=== PATIENT | male | born 1985 | race Caucasian/White ===

== ENCOUNTER 2024-11-28 08:36 | Emergency (ER) | payer OTHER ==
[~2024-11-28] VITALS: Ht 170.2 cm; Wt 102.8 kg
[~2024-11-28 08:36] MED LIST: HALOPERIDOL1 MG PO; HYDROXYZINE HCL25 MG PO; LEVOTHYROXINE50 MC1 PO; LEXAPRO10 MG PO; TRAZODONE HCL50 MG PO
--- OUTSIDE RECORDS SUMMARY | 2024-11-28 08:43 | XMS ---
PreManage Notification: JOSEPH REYNOLDS Security Financial Manager Events No recent Security Events currently on file CRITERIA MET - [facility] - 2 Visits in 30 Days CARE PROVIDERS There are no care providers on record at this time. Negro has no Care Guidelines for this patient. [place] V[facility] (12 MO.) [facility] T[facility] NOTE: Visits indicate total known visits. ED/C VISIT TRACKING (12 MO.) 11/28/2024 08:[address] [facility] [place] TYPE: Emergency COMPLAINT: - LEG PAIN 11/10/2024 12:[address] [facility] [facility] [place] TYPE: Emergency COMPLAINT: - FALL DIAGNOSES: - Cervicalgia - Dorsalgia, unspecified - Essential (primary) hypertension - Fall on same level from slipping, tripping and stumbling without subsequent striking against object, initial encounter - Headache, unspecified - Hormone replacement therapy - Other terminal worker (current) drug therapy - Pain in right knee - Pain in right shoulder - Unspecified injury of head, initial encounter INPATIENT VISIT TRACKING (12 MO.) No inpatient visits to display in this time frame [id number]
[2024-11-28] MEDS ORDERED: NAPROXEN375 M1 PO (08:50)
[2024-11-28] MEDS ORDERED: XARELTO10 MG PO (10:18)
[2024-11-28 10:42] VITALS: BP 123/69
== END 2024-11-28 10:55 | disposition other institution, planned readmission (95) ==
LOC: ED 08:36
DX: I82.812 Embolism and thrombosis of superficial veins of left lower extremity (principal); I10 Essential (primary) hypertension; Z79.899 Other long term (current) drug therapy
CPT/HCPCS: 93971; 99284-25

== ENCOUNTER 2024-12-01 14:51 | Emergency (ER) | payer OTHER ==
[~2024-12-01] VITALS: Ht 170.2 cm; Wt 100.0 kg
[~2024-12-01 14:51] MED LIST changes: +NAPROXEN375 M1 PO; +XARELTO10 MG PO
--- OUTSIDE RECORDS SUMMARY | 2024-12-01 14:59 | XMS ---
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 Negro has no Care Guidelines for this patient. [place] VISIT COUNT (12 MO.) 3 [facility] [place] [facility] TOTAL 3 NOTE: Visits indicate total known visits. ED/C VISIT TRACKING (12 MO.) 12/01/2024 14:52 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 - Essential (primary) hypertension - Other terminal block assembler (current) drug therapy - Pain in left lower leg 11/10/2024 12:10 [facility] TYPE: Emergency COMPLAINT: - FALL DIAGNOSES: - Cervicalgia - Dorsalgia, unspecified - Essential (primary) hypertension - Fall on same level from slipping, tripping and stumbling without subsequent striking against object, initial encounter - Headache, unspecified - Hormone replacement therapy - Other usp (current) drug therapy - Pain in right knee - Pain in right shoulder - Unspecified injury of head, initial encounter INPATIENT VISIT TRACKING (12 MO.) No inpatient visits to display in this time frame [id number]
[2024-12-01] MEDS ORDERED: KETOROLAC TROMETHAMINE 30 MG/ML VIAL IV ONE (16:15)
[2024-12-01 16:16] LABS: BASOPHILS 1.2 % (0.2-1.2); EOSINOPHILS 3.7 % (0.8-7.0); LYMPHOCYTES 39.2 % (21.8-53.1); MCH 30.1 PG (25.7-32.2); MCHC 35.0 g/dL (32.3-36.5); MCV 86.1 fL (79.0-92.2); MONOCYTES 9.2 % (5.3-12.2); NEUTROPHILS 46.3 % (34.0-67.9); RBC 4.95 M/uL (4.63-6.08)
[2024-12-01 16:21] LABS: BLOOD/HGB, URINE LARGE (Negative); KETONE, URINE NEGATIVE (Negative); LEUK ESTERASE, URINE NEGATIVE (negative); NITRITE, URINE NEGATIVE (negative)
[2024-12-01 16:28] LABS: BACTERIA, URINE NONE SEEN /hpf (negative); CASTS, URINE NONE SEEN \\lpf; CRYSTALS, URINE CALCIUM OXALATE 1+ (0-1+); EPITHELIAL CELLS, URINE 0 /lpf (0-1+); REFLEX CULTURE, URINE No (No)
[2024-12-01 16:32] LABS: ALT (SGPT) 61.0 U/L (14-59); AST (SGOT) 34.0 U/L (15-37); GLOMERULAR FILTRATION RATE,EST 89.0 mL/min (>60); PROTEIN, TOTAL 7.6 g/dL (6.4-8.2); UREA NITROGEN 20.0 mg/dL (7-18)
[2024-12-01 18:31] VITALS: BP 139/79
== END 2024-12-01 18:34 | disposition home or self-care (01) ==
LOC: ED 14:51
PROVIDERS: Emergency Medicine
DX: R10.9 Unspecified abdominal pain (principal); R51.9 Headache, unspecified; I10 Essential (primary) hypertension; Z79.01 Long term (current) use of anticoagulants; Z79.890 Hormone replacement therapy; Z79.899 Other long term (current) drug therapy
CPT/HCPCS: 36415; 70450; 74176; 80053; 81001; 85025; 96374; 99284-25; J1885